=== PATIENT | male | born 1975 | race Caucasian/White ===

== ENCOUNTER 2020-04-30 13:27 | Inpatient (IN) | payer OTHER ==
[~2020-04-30] VITALS: Ht 187.9 cm; Wt 134.3 kg
[2020-04-30 13:47] VITALS: BP 109/63
[2020-04-30 14:43] LABS: BASO % 0.1 % (0.0-1.0); HEMATOCRIT 32.5 % (42.0-52.0); LYMPH # 0.8 10*3/uL (1.3-4.4); LYMPH % 8.4 % (27.0-41.0); MEAN CELL VOLUME 78.3 fl (80.0-94.0); MEAN CORPUSCULAR HGB 24.3 pg (27.0-31.0); MEAN CORPUSCULAR HGB CONC 31.1 g/dl (33.0-37.0); MEAN PLATELET VOLUME 11.2 fl (9.6-12.3); MONO # 0.3 10*3/uL (0.1-1.0); MONO % 2.5 % (3.0-9.0); NEUT # 8.7 10*3/uL (2.3-7.9); NEUT % 87.8 % (47.0-73.0); PLATELET COUNT AUTOMATED 187 10*3/uL (130-400); RED BLOOD COUNT 4.15 10*6/uL (4.50-5.90); RED CELL DISTRI WIDTH 17.6 % (0-14.5)
[2020-04-30 15:03] LABS: ALBUMIN 2.7 gm/dl (3.1-4.5); ALKALINE PHOSPHATASE 50 U/L (45-117); BUN 30 mg/dl (7-24); CHLORIDE 107 mmol/L (98-107); CPK 96 U/L (39-308); CREATININE 1.56 mg/dL (0.70-1.30); LDH 471 U/L (87-241); POTASSIUM 4.4 mmol/L (3.5-5.1); SGOT/AST 41 IU/L (3-35); SGPT/ALT 18 U/L (12-78); SODIUM 137 mmol/L (136-145); TOTAL PROTEIN 8.2 gm/dL (6.4-8.2)
[2020-04-30 15:06] LABS: TROPONIN I < 0.015 ng/ml (<0.045)
[2020-04-30 15:11] LABS: ACT PARTIAL THROMBO TIME 32.2 SECONDS (20.0-32.1); INTERNATIONAL NORM RATIO 1.3 (2.0-3.5)
[2020-04-30 15:36] LABS: ABG BASE EXCESS -2.5 mmol/L (-2.0-2.0); ARTERIAL BLOOD GAS PH 7.414 (7.35-7.45)
[2020-04-30 16:00] VITALS: BP 114/61
[2020-04-30 20:00] VITALS: BP 114/61
[2020-04-30 20:50] VITALS: BP 107/56
[2020-04-30 23:20] VITALS: BP 98/55
[2020-04-30] MEDS ORDERED: LIPITOR20 MG PO (23:24)
[2020-04-30] MEDS ORDERED: SINGULAIR10 M1 PO (23:24)
[2020-04-30] MEDS ORDERED: DIOVAN160 M2 PO (23:24)
[2020-04-30] MEDS ORDERED: ELIQUIS5 M1 PO (23:25)
[2020-04-30] MEDS ORDERED: PREDNISONE20 M1 PO ×2 (23:25→23:31)
[2020-04-30] MEDS ORDERED: DOXYCYCLINE100 MG PO (23:26)
[2020-05-01 00:35] VITALS: BP 100/60
[2020-05-01 06:28] LABS: ALBUMIN 2.7 gm/dl (3.1-4.5); BUN 31 mg/dl (7-24); CHLORIDE 109 mmol/L (98-107); CHOLESTEROL 69 mg/dL (<200); CREATININE 1.34 mg/dL (0.70-1.30); LDH 468 U/L (87-241); POTASSIUM 4.7 mmol/L (3.5-5.1); SGOT/AST 38 IU/L (3-35); SGPT/ALT 18 U/L (12-78); SODIUM 139 mmol/L (136-145); TOTAL PROTEIN 8.2 gm/dL (6.4-8.2); TRIGLYCERIDES 172 mg/dl (<150); VLDL CHOLESTEROL 34 mg/dL (6-40)
[2020-05-01 06:30] LABS: ALKALINE PHOSPHATASE 53 U/L (45-117); HDL CHOLESTEROL 12 mg/dl (40-60); LDL CHOLESTEROL 23 mg/dL (9-159)
[2020-05-01 06:31] LABS: CPK 219 U/L (39-308)
[2020-05-01 06:35] LABS: BASO % 0.1 % (0.0-1.0); HEMATOCRIT 33.8 % (42.0-52.0); LYMPH % 8.9 % (27.0-41.0); MEAN CORPUSCULAR HGB CONC 29.3 g/dl (33.0-37.0); MEAN PLATELET VOLUME 10.6 fl (9.6-12.3); MONO # 0.2 10*3/uL (0.1-1.0); NEUT # 10.3 10*3/uL (2.3-7.9); NEUT % 87.9 % (47.0-73.0); PLATELET COUNT AUTOMATED 212 10*3/uL (130-400); RED BLOOD COUNT 4.13 10*6/uL (4.50-5.90); RED CELL DISTRI WIDTH 17.6 % (0-14.5); WHITE BLOOD COUNT 11.8 10*3/uL (4.8-10.8)
[2020-05-01 06:43] LABS: INTERNATIONAL NORM RATIO 1.2 (2.0-3.5)
[2020-05-01 06:58] VITALS: BP 90/50
[2020-05-01 07:02] LABS: MEAN CELL VOLUME 81.8 fl (80.0-94.0)
[2020-05-01 07:05] LABS: BILIRUBIN Negative (Negative); BLOOD Negative (Negative); CLARITY Cloudy (Clear); COLOR Yellow (Yellow); GLUCOSE Negative (Negative); KETONE Negative (Negative); LEUKO ESTERASE Negative (Negative); NITRITE Negative (Negative); SPECIFIC GRAVITY 1.025 (1.001-1.030); UROBILINOGEN 0.2 E.U./dl (0.0-1.0)
[2020-05-01 07:27] LABS: VITAMIN D, 25-HYDROXY 15.3 ng/mL (30-100)
[2020-05-01 07:41] LABS: BACTERIA 3+; MUCOUS 1+
[2020-05-01 08:01] VITALS: BP 99/42
[2020-05-01 08:01] LABS: FERRITIN 3063.5 ng/mL (22.0-322.0)
[2020-05-01 08:41] LABS: ABG BASE EXCESS -2.1 mmol/L (-2.0-2.0); ARTERIAL BLOOD GAS PH 7.44 (7.35-7.45)
[2020-05-01 12:00] VITALS: BP 111/57
[2020-05-01 16:01] VITALS: BP 104/53
[2020-05-01 20:02] VITALS: BP 128/66
[2020-05-01 20:13] LABS: ABG BASE EXCESS -3.4 mmol/L (-2.0-2.0); ARTERIAL BLOOD GAS PH 7.401 (7.35-7.45)
[2020-05-02] VITALS: BP 113/58
[2020-05-02 04:00] VITALS: BP 112/65
[2020-05-02 06:21] LABS: HEMATOCRIT 32.9 % (42.0-52.0); MEAN CELL VOLUME 81.8 fl (80.0-94.0); MEAN CORPUSCULAR HGB 24.1 pg (27.0-31.0); MEAN CORPUSCULAR HGB CONC 29.5 g/dl (33.0-37.0); MEAN PLATELET VOLUME 10.1 fl (9.6-12.3); PLATELET COUNT AUTOMATED 244 10*3/uL (130-400); RED BLOOD COUNT 4.02 10*6/uL (4.50-5.90); RED CELL DISTRI WIDTH 17.4 % (0-14.5); WHITE BLOOD COUNT 9.6 10*3/uL (4.8-10.8)
[2020-05-02 06:45] LABS: ALBUMIN 2.5 gm/dl (3.1-4.5); ALKALINE PHOSPHATASE 51 U/L (45-117); BUN 36 mg/dl (7-24); CHLORIDE 110 mmol/L (98-107); CREATININE 1.39 mg/dL (0.70-1.30); POTASSIUM 4.8 mmol/L (3.5-5.1); SGOT/AST 34 IU/L (3-35); SGPT/ALT 19 U/L (12-78); SODIUM 141 mmol/L (136-145); TOTAL PROTEIN 7.8 gm/dL (6.4-8.2)
[2020-05-02 06:46] LABS: CPK 87 U/L (39-308); LDH 440 U/L (87-241)
[2020-05-02 07:30] LABS: PLATELET SUFFICIENCY NORMAL (NORMAL); ROULEAUX MODERATE; TOTAL CELLS COUNTED 100 #CELLS
[2020-05-02 08:00] VITALS: BP 106/62
[2020-05-02 10:04] LABS: ARTERIAL BLOOD GAS PH 7.417 (7.35-7.45)
[2020-05-02 12:00] VITALS: BP 110/58
[2020-05-02 16:00] VITALS: BP 118/60
[2020-05-02 20:00] VITALS: BP 95/48
[2020-05-03] VITALS: BP 101/48
[2020-05-03 04:00] VITALS: BP 98/50
[2020-05-03 05:55] LABS: ALBUMIN 2.5 gm/dl (3.1-4.5); ALKALINE PHOSPHATASE 51 U/L (45-117); BUN 38 mg/dl (7-24); CHLORIDE 108 mmol/L (98-107); CREATININE 1.35 mg/dL (0.70-1.30); LDH 470 U/L (87-241); POTASSIUM 4.3 mmol/L (3.5-5.1); SGOT/AST 34 IU/L (3-35); SGPT/ALT 19 U/L (12-78); SODIUM 141 mmol/L (136-145); TOTAL PROTEIN 7.4 gm/dL (6.4-8.2)
[2020-05-03 05:58] LABS: CPK 59 U/L (39-308)
[2020-05-03 07:07] LABS: HEMATOCRIT 31.7 % (42.0-52.0); MEAN CELL VOLUME 81.1 fl (80.0-94.0); MEAN CORPUSCULAR HGB 24.3 pg (27.0-31.0); MEAN PLATELET VOLUME 10.8 fl (9.6-12.3); PLATELET COUNT AUTOMATED 295 10*3/uL (130-400); RED BLOOD COUNT 3.91 10*6/uL (4.50-5.90); RED CELL DISTRI WIDTH 17.4 % (0-14.5); WHITE BLOOD COUNT 9.3 10*3/uL (4.8-10.8)
[2020-05-03 08:00] VITALS: BP 111/57
[2020-05-03 08:45] LABS: ABG BASE EXCESS 1.3 mmol/L (-2.0-2.0); ARTERIAL BLOOD GAS PH 7.456 (7.35-7.45)
[2020-05-03 08:56] LABS: TOTAL CELLS COUNTED 100 #CELLS
[2020-05-03 08:57] LABS: PLATELET SUFFICIENCY NORMAL (NORMAL)
[2020-05-03 12:00] VITALS: BP 116/58
[2020-05-03 16:00] VITALS: BP 116/58
[2020-05-03 20:00] VITALS: BP 114/61
[2020-05-04] VITALS: BP 103/51
[2020-05-04 04:00] VITALS: BP 111/55
[2020-05-04 06:23] LABS: ALBUMIN 2.7 gm/dl (3.1-4.5); BUN 38 mg/dl (7-24); CHLORIDE 108 mmol/L (98-107); POTASSIUM 4.6 mmol/L (3.5-5.1); SODIUM 140 mmol/L (136-145)
[2020-05-04 06:26] LABS: HEMATOCRIT 32.1 % (42.0-52.0); MEAN CELL VOLUME 81.5 fl (80.0-94.0); MEAN CORPUSCULAR HGB 24.1 pg (27.0-31.0); MEAN CORPUSCULAR HGB CONC 29.6 g/dl (33.0-37.0); MEAN PLATELET VOLUME 10.7 fl (9.6-12.3); PLATELET COUNT AUTOMATED 311 10*3/uL (130-400); RED BLOOD COUNT 3.94 10*6/uL (4.50-5.90); RED CELL DISTRI WIDTH 17.3 % (0-14.5)
[2020-05-04 06:37] LABS: ALKALINE PHOSPHATASE 49 U/L (45-117); CREATININE 1.33 mg/dL (0.70-1.30); LDH 424 U/L (87-241); SGOT/AST 30 IU/L (3-35); SGPT/ALT 17 U/L (12-78); TOTAL PROTEIN 7.7 gm/dL (6.4-8.2)
[2020-05-04 06:40] LABS: CPK 30 U/L (39-308)
[2020-05-04 07:14] LABS: ATYPICAL LYMPHS 2 % (0-0); PLATELET SUFFICIENCY NORMAL (NORMAL); TOTAL CELLS COUNTED 100 #CELLS
[2020-05-04 07:15] LABS: ROULEAUX SLIGHT
[2020-05-04 08:00] VITALS: BP 118/69; BP 121/67
[2020-05-04 08:27] LABS: ABG BASE EXCESS 1.6 mmol/L (-2.0-2.0); ARTERIAL BLOOD GAS PH 7.468 (7.35-7.45)
[2020-05-04 12:00] VITALS: BP 117/61
[2020-05-04 16:00] VITALS: BP 123/70
[2020-05-04 20:00] VITALS: BP 127/65
[2020-05-05] VITALS: BP 117/56; BP 121/59
[2020-05-05 04:00] VITALS: BP 121/59
[2020-05-05 06:00] LABS: BASO % 0.2 % (0.0-1.0); EOS # 0.2 10*3/uL (0.0-0.4); EOS % 1.3 % (1.0-4.0); HEMATOCRIT 32.1 % (42.0-52.0); LYMPH # 1.4 10*3/uL (1.3-4.4); LYMPH % 11.7 % (27.0-41.0); MEAN CELL VOLUME 81.3 fl (80.0-94.0); MEAN CORPUSCULAR HGB 24.1 pg (27.0-31.0); MEAN CORPUSCULAR HGB CONC 29.6 g/dl (33.0-37.0); MEAN PLATELET VOLUME 10.7 fl (9.6-12.3); MONO # 0.4 10*3/uL (0.1-1.0); MONO % 3.2 % (3.0-9.0); NEUT # 9.4 10*3/uL (2.3-7.9); NEUT % 81.2 % (47.0-73.0); PLATELET COUNT AUTOMATED 299 10*3/uL (130-400); RED BLOOD COUNT 3.95 10*6/uL (4.50-5.90); RED CELL DISTRI WIDTH 17.2 % (0-14.5); WHITE BLOOD COUNT 11.6 10*3/uL (4.8-10.8)
[2020-05-05 06:10] LABS: ALBUMIN 2.7 gm/dl (3.1-4.5); BUN 31 mg/dl (7-24); CHLORIDE 109 mmol/L (98-107); CREATININE 1.17 mg/dL (0.70-1.30); LDH 444 U/L (87-241); POTASSIUM 4.7 mmol/L (3.5-5.1); SGOT/AST 32 IU/L (3-35); SGPT/ALT 20 U/L (12-78); SODIUM 141 mmol/L (136-145); TOTAL PROTEIN 7.5 gm/dL (6.4-8.2)
[2020-05-05 06:11] LABS: ALKALINE PHOSPHATASE 48 U/L (45-117); CPK 31 U/L (39-308)
[2020-05-05 08:00] VITALS: BP 135/73
[2020-05-05 08:39] LABS: ABG BASE EXCESS 2.6 mmol/L (-2.0-2.0); ARTERIAL BLOOD GAS PH 7.482 (7.35-7.45)
[2020-05-05 12:00] VITALS: BP 115/88
[2020-05-05 16:00] VITALS: BP 121/73
[2020-05-05 20:00] VITALS: BP 127/69
[2020-05-06] VITALS: BP 118/66
[2020-05-06 04:00] VITALS: BP 117/56
[2020-05-06 06:12] LABS: ALBUMIN 2.7 gm/dl (3.1-4.5); BUN 27 mg/dl (7-24); CHLORIDE 108 mmol/L (98-107); CREATININE 1.13 mg/dL (0.70-1.30); POTASSIUM 4.5 mmol/L (3.5-5.1); SGOT/AST 30 IU/L (3-35); SGPT/ALT 24 U/L (12-78); SODIUM 139 mmol/L (136-145); TOTAL PROTEIN 7.6 gm/dL (6.4-8.2)
[2020-05-06 06:14] LABS: BASO % 0.2 % (0.0-1.0); EOS # 0.2 10*3/uL (0.0-0.4); EOS % 1.6 % (1.0-4.0); HEMATOCRIT 32.4 % (42.0-52.0); LYMPH # 1.4 10*3/uL (1.3-4.4); LYMPH % 10.9 % (27.0-41.0); MEAN CELL VOLUME 81.2 fl (80.0-94.0); MEAN CORPUSCULAR HGB 24.3 pg (27.0-31.0); MEAN CORPUSCULAR HGB CONC 29.9 g/dl (33.0-37.0); MONO # 0.4 10*3/uL (0.1-1.0); MONO % 3.2 % (3.0-9.0); NEUT # 10.4 10*3/uL (2.3-7.9); NEUT % 81.7 % (47.0-73.0); PLATELET COUNT AUTOMATED 309 10*3/uL (130-400); RED BLOOD COUNT 3.99 10*6/uL (4.50-5.90); RED CELL DISTRI WIDTH 17.4 % (0-14.5); WHITE BLOOD COUNT 12.7 10*3/uL (4.8-10.8)
[2020-05-06 06:15] LABS: ALKALINE PHOSPHATASE 48 U/L (45-117); LDH 400 U/L (87-241)
[2020-05-06 06:20] LABS: CPK 20 U/L (39-308)
[2020-05-06 08:00] VITALS: BP 127/65
[2020-05-06 08:07] LABS: ABG BASE EXCESS 2.3 mmol/L (-2.0-2.0); ARTERIAL BLOOD GAS PH 7.478 (7.35-7.45)
[2020-05-06 12:00] VITALS: BP 112/63
[2020-05-06 14:43] LABS: ABG BASE EXCESS 1.6 mmol/L (-2.0-2.0); ARTERIAL BLOOD GAS PH 7.465 (7.35-7.45)
[2020-05-06 16:00] VITALS: BP 112/69
[2020-05-06 20:00] VITALS: BP 128/82
[2020-05-07] VITALS: BP 125/74
[2020-05-07 04:00] VITALS: BP 118/84
[2020-05-07 06:35] LABS: BASO % 0.1 % (0.0-1.0); EOS # 0.1 10*3/uL (0.0-0.4); EOS % 0.7 % (1.0-4.0); HEMATOCRIT 34.7 % (42.0-52.0); LYMPH # 1.7 10*3/uL (1.3-4.4); LYMPH % 11.4 % (27.0-41.0); MEAN CELL VOLUME 81.3 fl (80.0-94.0); MEAN CORPUSCULAR HGB 24.1 pg (27.0-31.0); MEAN CORPUSCULAR HGB CONC 29.7 g/dl (33.0-37.0); MEAN PLATELET VOLUME 10.7 fl (9.6-12.3); MONO # 0.5 10*3/uL (0.1-1.0); MONO % 3.2 % (3.0-9.0); NEUT % 82.7 % (47.0-73.0); PLATELET COUNT AUTOMATED 312 10*3/uL (130-400); RED BLOOD COUNT 4.27 10*6/uL (4.50-5.90); RED CELL DISTRI WIDTH 18.4 % (0-14.5); WHITE BLOOD COUNT 14.5 10*3/uL (4.8-10.8)
[2020-05-07 07:04] LABS: ALBUMIN 2.9 gm/dl (3.1-4.5); ALKALINE PHOSPHATASE 72 U/L (45-117); BUN 31 mg/dl (7-24); CHLORIDE 105 mmol/L (98-107); CREATININE 1.22 mg/dL (0.70-1.30); LDH 382 U/L (87-241); POTASSIUM 4.2 mmol/L (3.5-5.1); SGOT/AST 24 IU/L (3-35); SGPT/ALT 26 U/L (12-78); SODIUM 138 mmol/L (136-145); TOTAL PROTEIN 7.7 gm/dL (6.4-8.2)
[2020-05-07 08:00] VITALS: BP 108/66
[2020-05-07 08:50] LABS: ABG BASE EXCESS 3.1 mmol/L (-2.0-2.0); ARTERIAL BLOOD GAS PH 7.534 (7.35-7.45)
[2020-05-07 12:00] VITALS: BP 130/73
[2020-05-07] MEDS ORDERED: ENOXAPARIN150 MG/1 M SC (13:41)
[2020-05-07] MEDS ORDERED: FUROSEMIDE10 MG/1 M1 IV (13:41)
[2020-05-07] MEDS ORDERED: DECADRON4 MG PO (13:41)
[2020-05-07] MEDS ORDERED: ZINC SULFATE220 MG PO (13:41)
[2020-05-07 14:12] LABS: ABG BASE EXCESS 3.1 mmol/L (-2.0-2.0); ARTERIAL BLOOD GAS PH 7.509 (7.35-7.45)
[2020-05-07 20:00] VITALS: BP 105/65
[2020-05-08] VITALS: BP 116/71
[2020-05-08 04:00] VITALS: BP 120/74
[2020-05-08 05:50] LABS: ALBUMIN 2.7 gm/dl (3.1-4.5); ALKALINE PHOSPHATASE 59 U/L (45-117); BUN 29 mg/dl (7-24); CHLORIDE 103 mmol/L (98-107); CREATININE 1.03 mg/dL (0.70-1.30); LDH 300 U/L (87-241); POTASSIUM 4.3 mmol/L (3.5-5.1); SGOT/AST 18 IU/L (3-35); SGPT/ALT 24 U/L (12-78); SODIUM 135 mmol/L (136-145); TOTAL PROTEIN 7.1 gm/dL (6.4-8.2)
[2020-05-08 06:14] LABS: BASO % 0.1 % (0.0-1.0); EOS # 0.1 10*3/uL (0.0-0.4); EOS % 0.4 % (1.0-4.0); HEMATOCRIT 32.9 % (42.0-52.0); LYMPH # 1.4 10*3/uL (1.3-4.4); LYMPH % 9.6 % (27.0-41.0); MEAN CELL VOLUME 81.6 fl (80.0-94.0); MEAN CORPUSCULAR HGB 24.6 pg (27.0-31.0); MEAN CORPUSCULAR HGB CONC 30.1 g/dl (33.0-37.0); MEAN PLATELET VOLUME 10.7 fl (9.6-12.3); MONO # 0.4 10*3/uL (0.1-1.0); MONO % 3.1 % (3.0-9.0); NEUT # 11.9 10*3/uL (2.3-7.9); NEUT % 84.9 % (47.0-73.0); PLATELET COUNT AUTOMATED 281 10*3/uL (130-400); RED BLOOD COUNT 4.03 10*6/uL (4.50-5.90); RED CELL DISTRI WIDTH 18.6 % (0-14.5)
[2020-05-08 08:00] VITALS: BP 100/61
[2020-05-08 08:16] LABS: ABG BASE EXCESS 2.9 mmol/L (-2.0-2.0); ARTERIAL BLOOD GAS PH 7.481 (7.35-7.45)
[2020-05-08 12:00] VITALS: BP 102/62
[2020-05-08 16:00] VITALS: BP 112/64
[2020-05-08 20:00] VITALS: BP 97/61
== END 2020-05-08 21:28 | disposition short-term general hospital (02) | DRG 871 ==
LOC: ED 13:27 → 4E 16:23 → ICCU 16:23 → EDHOLD 16:23 → 4E 05-01 09:48 → ICCU 05-02 12:06
PROVIDERS: Emergency Medicine; Family Medicine; Internal Medicine Critical Care Medicine; Student in an Organized Health Care Education/Training Program; ADMIT Internal Medicine; ATTEND Internal Medicine
PROC: 5A09357 Assistance with Respiratory Ventilation, Less than 24 Consecutive Hours, Continuous Positive Airway Pressure (ICD-10-PCS; 2020-04-30)
PROC: 5A09357 Assistance with Respiratory Ventilation, Less than 24 Consecutive Hours, Continuous Positive Airway Pressure (ICD-10-PCS; principal; 2020-05-01)
PROC: 05HY33Z Insertion of Infusion Device into Upper Vein, Percutaneous Approach (ICD-10-PCS; 2020-05-01)
PROC: B54MZZA Ultrasonography of Right Upper Extremity Veins, Guidance (ICD-10-PCS; 2020-05-01)
PROC: 5A09357 Assistance with Respiratory Ventilation, Less than 24 Consecutive Hours, Continuous Positive Airway Pressure (ICD-10-PCS; 2020-05-02)
PROC: 5A09357 Assistance with Respiratory Ventilation, Less than 24 Consecutive Hours, Continuous Positive Airway Pressure (ICD-10-PCS; 2020-05-04)
PROC: 5A09357 Assistance with Respiratory Ventilation, Less than 24 Consecutive Hours, Continuous Positive Airway Pressure (ICD-10-PCS; 2020-05-05)
PROC: 5A09457 Assistance with Respiratory Ventilation, 24-96 Consecutive Hours, Continuous Positive Airway Pressure (ICD-10-PCS; 2020-05-05)
DX: A41.9 Sepsis, unspecified organism (principal); U07.1 COVID-19; J96.01 Acute respiratory failure with hypoxia; E43 Unspecified severe protein-calorie malnutrition; J12.89 Other viral pneumonia; I82.409 Acute embolism and thrombosis of unspecified deep veins of unspecified lower extremity; D68.59 Other primary thrombophilia; R65.20 Severe sepsis without septic shock; E66.01 Morbid (severe) obesity due to excess calories; D50.9 Iron deficiency anemia, unspecified; R73.9 Hyperglycemia, unspecified; I10 Essential (primary) hypertension; Z91.041 Radiographic dye allergy status; E78.5 Hyperlipidemia, unspecified; Z68.38 Body mass index [BMI] 38.0-38.9, adult; Z79.899 Other long term (current) drug therapy